=== PATIENT | female | born 1940 | race Caucasian/White ===

== ENCOUNTER 2018-07-20 07:31 | Outpatient (CLI) | payer MEDICARE ==
[2018-07-20] MEDS ORDERED: Iopamidol 370 76% 100 ML VIAL ONE (09:00)
--- NOTE | 2018-07-20 16:50 | CT ---
CT OF THE NECK WITH CONTRAST: 07/20/18 COMPARISON: None. HISTORY: High risk skin cancer. Evaluate for adenopathy in the neck. TECHNIQUE: Multiple contiguous axial images were obtained in CT of the neck with contrast. Sagittal and coronal reformats were performed. FINDINGS: There is soft tissue irregularity along the right cheek which may represent the patient's known malig león. No subcutaneous mass is identified. There are implants in the teeth and dental amalgam which produce streak artifact limiting evaluation of the oropharynx. No mucosal abnormality is seen in the nasopharynx, oropharynx, hypopharynx or subg lottic regions. The parapharyngeal spaces are symmetric. No cervical adenopathy is appreciated. There are right sided submandibular lymph nodes measuring up t o 10 mm in short axis which are upper limits of normal in size. These are asymmetric when compared to the left. The salivary glands are symmetric without focal abnormality. The thyroid is unremarkable. Degenerative changes are seen in the spine. The visualized lung apices and intracranial structures ar e unremarkable. IMPRESSION: There are lymph nodes in the right submandibular region which are upper limits of normal in size but asymmetric when compared to the left. These could potentially represent metastatic lymph nodes. POS: ALLAN
== END 2018-07-20 07:32 | disposition home or self-care (01) ==
LOC: SCSCT 07:31
PROVIDERS: ATTEND Radiology Radiation Oncology
DX: C44.329 Squamous cell carcinoma of skin of other parts of face (principal)
CPT/HCPCS: 70491; 82565

== ENCOUNTER 2018-07-29 08:04 | Outpatient (CLI) | payer MEDICARE ==
--- NOTE | 2018-07-29 13:57 | PET ---
PET WITH CT SKULL TO MID THIGH: CLINICAL HISTORY: Squamous cell carcinoma of right cheek. Reference made to recent CT neck soft tissue exam dated 07/20/18. RADIOPHARMACEUTICAL: 12.5 mCi [id number] IV. FINDINGS: There is no evidence of hypermetabolic mass or adenopathy involving the neck, chest, abdomen, or pelv is. The previously mentioned right submandibular lymph node is not hypermetabolic. There are numerous colonic diverticula. Scattered vascular disease is present. IMPRESSION: No hypermetabolic mass or adenopathy to indicate metastatic disease is demonstrated. POS: ALLAN
== END 2018-07-29 08:05 | disposition home or self-care (01) ==
LOC: PET 08:04
PROVIDERS: ATTEND Radiology Radiation Oncology
DX: C44.329 Squamous cell carcinoma of skin of other parts of face (principal); R59.0 Localized enlarged lymph nodes
CPT/HCPCS: 78815; A9552

== ENCOUNTER 2025-07-28 17:09 | Emergency (ER) | payer MEDICARE ==
[2025-07-28 17:23] LABS: #Basophils 0.08 10x3/uL (0.0-0.2); #Eosinophils 0.81 10x3/uL (0.0-0.7); #Monocytes 0.78 10x3/uL (0.11-0.59); #Neutrophils 3.43 10x3/uL (1.40-6.50); %Basophils 1.0 % (0.0-1.0); %Eosinophils 10.3 % (0.0-10.0); %Lymphocytes 34.9 % (21.0-51.0); %Monocytes 9.9 % (0.0-10.0); %Neutrophils 43.5 % (42.0-75.0); Hematocrit 36.1 % (36.0-47.0); Hemoglobin 11.6 g/dL (12.0-16.0); Mean Corpuscular Hemoglobin 28.4 pg (27.0-31.0); Mean Corpuscular Volume 88.5 fL (78.0-98.0); Platelet Count 234 10x3/uL (130-400); Red Blood Cell (RBC) Count 4.08 mill/uL (4.20-5.40); White Blood Cell (WBC) Count 7.88 10x3/uL (4.8-10.8)
[2025-07-28 17:45] LABS: ALT (SGPT) 15 U/L (Less than 34); AST (SGOT) 31 U/L (11-34); Albumin 3.6 g/dL (3.1-4.5); Alkaline Phosphatase 76 U/L (40-110); Anion Gap 14 mmol/L (10-20); BUN (Urea Nitrogen) 12 mg/dL (9.8-20.1); Bilirubin, Total 0.2 mg/dL (0.3-1.2); CK (CPK) 92 U/L (29-168); Calc. Creatinine Clearance 0 mL/min (70-130); Calcium 8.8 mg/dL (7.8-10.44); Carbon Dioxide 24 mmol/L (23-31); Chloride 105 mmol/L (98-107); Globulin 3.1 g/dL (2.4-3.5); Glucose 138 mg/dL (83-110); Potassium 4.3 mmol/L (3.5-5.1); Sodium 139 mmol/L (136-145)
[2025-07-28 18:13] LABS: Bacteria/HPF 2+ HPF (None Seen); CAUTI Indications for Culture < 2yrs of age; Glucose, Urine (Dipstick) Normal (Negative); Leukocyte 500 Leu/uL (Negative); Protein, Urine (Dipstick) 50 mg/dL (Neg-Trace); RBC/HPF 0-3 HPF (0-3); Specific Gravity, Urine 1.020 (1.002-1.036); WBC/HPF Greater than 50 HPF (0-3)
[2025-07-28 18:16] LABS: Urine Culture Reflex Yes Yes
== END 2025-07-28 23:15 | disposition home or self-care (01) ==
LOC: ERS 17:09
DX: S12.101A Unspecified nondisplaced fracture of second cervical vertebra, initial encounter for closed fracture (principal); S41.112A Laceration without foreign body of left upper arm, initial encounter; S05.12XA Contusion of eyeball and orbital tissues, left eye, initial encounter; E11.9 Type 2 diabetes mellitus without complications; I10 Essential (primary) hypertension; E78.5 Hyperlipidemia, unspecified; Z23 Encounter for immunization; Z79.84 Long term (current) use of oral hypoglycemic drugs; Z79.899 Other long term (current) drug therapy; W19.XXXA Unspecified fall, initial encounter
CPT/HCPCS: 70450; 70486; 71045; 72125; 80053; 81001; 82550; 84484; 85025; 87077; 87086; 90471; 90715; 93005